=== PATIENT | female | born 1940 | race Caucasian/White ===

== ENCOUNTER 2016-04-24 15:44 | Inpatient (IN) | payer MEDICARE, OTHER ==
[2016-04-24] MEDS ORDERED: IPRATROPIUM/ALBUTEROL 3 ML DEYVIAL IH ONE (15:53)
--- NOTE | 2016-04-24 16:03 | CPEKG ---
Heart Rate: 127 RR Interval: 472 P-R Interval: 144 QRSD Interval: 138 QT Interval: 340 QTC Interval: 495 P [place]: 74 QRS [place]ney: -76 T Wave [place]: 98 EKG Severity - ABNORMAL ECG - EKG Impression: SINUS TACHYCARDIA EKG Impression: PROBABLE LEFT ATRIAL ABNORMALITY EKG Impression: LEFT BUNDLE BRANCH BLOCK EKG Impression: Left ventricular hypertrophy with repolarization Electronically Signed By: Ellis Vidal 24-Apr-2016 16:14:49
[2016-04-24] MEDS ORDERED: ALBUTEROL 3 ML DEYVIAL IH ONE ×2 (16:13→16:23)
[2016-04-24] MEDS ORDERED: methylPREDNISolone SOD SUCC 125 MG/2 ML VIAL IVP ONE (16:13)
--- NOTE | 2016-04-24 16:17 | EDPHY ---
H & P Stated Complaint: increasing sob/cough Time Seen by Provider: 04/24/16 16:03 HPI/ROS: CHIEF COMPLAINT: Shortness of breath HISTORY OF PRESENT ILLNESS: Patient is a 76-year-old female smoker with a history of COPD who comes to the emergency department complaining of shortness of breath. She states that she has been mildly short of breath for the last 4 weeks. It started with a runny nose. She saw her doctor a few weeks ago and was started on a course of prednisone and doxycycline. This did not help initially but eventually she did feel better for about 4 days until her symptoms returned. She saw her doctor again 3 days ago and was started back on doxycycline and prednisone. She states however that does not seem to be helping. She does not wear oxygen at home. She has been using her inhaler 3 times per day. She denies fevers. She does have a dry cough. She denies chest pain or abdominal pain. Her doctor's office referred her here today requesting that she be ruled out for heart attack or PE. REVIEW OF SYSTEMS: Constitutional: denies: chills, fever, recent illness, recent injury EENTM: denies: blurred vision, double vision, nose congestion Respiratory: See HPI Cardiac: denies: chest pain, irregular heart rate, lightheadedness, palpitations Gastrointestinal/Abdominal: denies: abdominal pain, diarrhea, nausea, vomiting, blood streaked stools Genitourinary: denies: dysuria, frequency, hematuria, pain Musculoskeletal: denies: joint pain, muscle pain Skin: denies: lesions, rash, jaundice, bruising Neurological: denies: headache, numbness, paresthesia, tingling, dizziness, weakness Hematologic/Lymphatic: denies: blood clots, easy bleeding, easy bruising Immunologic/allergic: denies: HIV/AIDS, transplant EXAM: GENERAL: tachypneic, well-nourished and in no acute distress. HEAD: Atraumatic, normocephalic. EYES: Pupils equal round and reactive to light, extraocular movements intact, sclera anicteric, conjunctiva are normal. ENT: TMs normal, nares patent, oropharynx clear without exudates. Moist mucous membranes. NECK: Normal range of motion, supple without lymphadenopathy or JVD. LUNGS: audible wheezes without auscultation, breath sounds distant with auscultation. No rhonchi. HEART: Regular rate and rhythm without murmurs, rubs or gallops. ABDOMEN: Soft, nontender, normoactive bowel sounds. No guarding, no rebound. No masses appreciated. BACK: No CVA tenderness, no spinal tenderness, step-offs or deformities EXTREMITIES: Normal range of motion, no pitting or edema. No clubbing or cyanosis. NEUROLOGICAL: Cranial nerves II through XII grossly intact. Normal speech, normal gait. 5/5 strength, normal movement in all extremities, normal sensation PSYCH: Normal mood, normal affect. SKIN: Warm, dry, normal turgor, no visible rashes or lesions. Source: Patient Exam Limitations: No limitations - Personal History Current Tetanus/Diphtheria Vaccine: Unsure - Medical/Surgical History Hx Asthma: Yes Hx Chronic Respiratory Disease: Yes Hx Diabetes: No Hx Cardiac Disease: No Hx Renal Disease: No Hx Cirrhosis: No Hx Alcoholism: No Hx HIV/AIDS: No Hx Splenectomy or Spleen Trauma: No Other PMH: copd/asthma/htn - Family History Significant Family History: No pertinent family hx - Social History Smoking Status: Current every day smoker Alcohol Use: Sober Drug Use: None Constitutional: Initial Vital Signs Temperature (C) 36.5 C 04/24/16 15:50 Heart Rate 126 H 04/24/16 15:50 Respiratory Rate 34 H 04/24/16 15:50 Blood Pressure 182/92 H 04/24/16 15:50 O2 Sat (%) 91 L 04/24/16 15:50 O2 Delivery Mode Nasal Cannula O2 (L/minute) 2 Allergies/Adverse Reactions: Penicillins Allergy (Verified 04/24/16 15:48) Home Medications: Medication Instructions Recorded Albuterol [Ventolin Hfa Inhaler] 2 puffs IH QID 04/24/16 Doxycycline Hyclate [Vibramycin 100 mg PO BID 04/24/16 100 MG (*)] Escitalopram Oxalate [Lexapro] 5 mg PO DAILY 04/24/16 Losartan Potassium [Cozaar 50 mg 75 mg PO DAILY 04/24/16 (*)] predniSONE 40 mg PO DAILY 04/24/16 Medical Decision Making - Diagnostics EKG Interpretation: An EKG obtained and was read and documented in trace view. Please see trace view for full reading and report. Sinus tachycardia, left bundle branch block, left ventricular hypertrophy with repolarization abnormality Imaging: Results: CT scan of the chest angiogram was obtained. The results of the study are negative for PE, positive for multiple bilateral mucus plugs as well as right upper lobe pneumonitis. The study was read by Dr. Jamaal Brunner. I viewed the images myself on the PACS system. ED Course/Re-evaluation: 5:40 p.m. the patient is feeling slightly better after albuterol continuous neb. She desaturates however on room air down to 87%. She continues to be tachypneic and purse her lips. Lung sounds remain distant not necessarily wheezing. Her troponin is slightly elevated likely secondary to the respiratory distress. CT results pending. I discussed her case with Hilton who recommended she stay here. She also remains tachycardic which I think is likely secondary to the albuterol load. 6:00 p.m. I will start the patient on antibiotics based on her mucus plugging and admit to the hospital for further workup and treatment. I discussed the case with Dr. Herson Watson who will accept to the medical service. I will order sepsis labs because of her tachycardia and possible bronchitis although I suspect her tachycardia is primarily from the albuterol she has been taking today. She is hypertensive. Differential Diagnosis: Partial list of the Differential diagnosis considered include but were not limited to; COPD exacerbation, bronchitis, pneumonia and although unlikely based on the history and physical exam, I also considered PE, acute coronary disease. - Data Points Laboratory Results: Laboratory Results 04/24/16 16:30 04/24/16 16:30 04/24/16 16:30 WBC 12.30 H 10^3/uL (3.80-9.50) RBC 5.54 H 10^6/uL (4.18-5.33) Hgb 16.5 H g/dL (12.6-16.3) Hct 47.8 H % (38.0-47.0) MCV 86.3 fL (81.5-99.8) MCH 29.8 pg (27.9-34.1) MCHC 34.5 g/dL (32.4-36.7) RDW 13.9 % (11.5-15.2) Plt Count 350 10^3/uL (150-400) MPV 10.3 fL (8.7-11.7) Neut % (Auto) 84.7 H % (39.3-74.2) Lymph % (Auto) 11.8 L % (15.0-45.0) [place] % (Auto) 2.8 L % (4.5-13.0) Eos % (Auto) 0.2 L % (0.6-7.6) Baso % (Auto) 0.2 L % (0.3-1.7) Nucleat RBC Rel Count 0.0 % (0.0-0.2) Absolute Neuts (auto) 10.42 H 10^3/uL (1.70-6.50) Absolute Lymphs (auto) 1.45 10^3/uL (1.00-3.00) Absolute Monos (auto) 0.35 10^3/uL (0.30-0.80) Absolute Eos (auto) 0.02 L 10^3/uL (0.03-0.40) Absolute Basos (auto) 0.02 10^3/uL (0.02-0.10) Absolute Nucleated RBC 0.00 10^3/uL (0-0.01) Immature Gran % 0.3 % (0.0-1.1) Immature Gran # 0.04 10^3/uL (0.00-0.10) PT 13.8 SEC (12.0-15.0) INR 1.07 (0.83-1.16) APTT 25.8 SEC (23.0-38.0) Sodium 143 mEq/L (134-144) Potassium 3.6 mEq/L (3.5-5.2) Chloride 105 mEq/L (97-110) Carbon Dioxide 24 mEq/l (22-31) Anion Gap 14 mEq/L (8-16) BUN 18 mg/dL (7-23) Creatinine 0.9 mg/dL (0.6-1.0) Estimated GFR > 60 Glucose 158 H mg/dL (70-100) Calcium 9.7 mg/dL (8.5-10.4) Total Bilirubin 0.6 mg/dL (0.1-1.4) Troponin I 0.048 H ng/mL (0-0.034) NT-Pro-B Natriuret Pep 3720 H pg/mL (0-450) Medications Given: Discontinued Medications Albuterol (Proventil Neb) 3 ml IH EDNOW ONE Stop: 01/20/17 16:14 Last Admin: 04/24/16 16:25 Dose: Not Given Albuterol (Proventil Neb) 10 ml IH CONT ONE Stop: 04/24/16 16:24 Last Admin: 04/24/16 16:35 Dose: 10 ml Albuterol/Ipratropium (Duoneb) 3 ml IH EDNOW ONE Stop: 04/24/16 15:54 Last Admin: 04/24/16 16:00 Dose: 3 ml Azithromycin 500 mg/ Dextrose 255 mls @ 255 mls/hr IV EDNOW ONE PRN Reason: Protocol Stop: 04/24/16 18:45 Last Admin: 04/24/16 18:47 Dose: 255 mls Methylprednisolone Sodium Succinate (Solu-Medrol) 125 mg IVP EDNOW ONE Stop: 04/24/16 16:14 Last Admin: 04/24/16 16:31 Dose: 125 mg Sodium Chloride (Ns *For Sepsis Order Set Only*) 1,388 ml IV EDNOW ONE Stop: 04/24/16 17:52 Last Admin: 04/24/16 18:47 Dose: 1,388 ml Departure - Departure Disposition: [facility] Inpatient Acute Clinical Impression: Chronic obstructive pulmonary disease with acute exacerbation, Severe sepsis Acute bronchitis Qualifiers: Bronchitis organism: unspecified organism Qualifier Code: (J20.9) Acute bronchitis, unspecified Condition: Fair
[2016-04-24 16:39] LABS: % IMMATURE GRANULYOCYTES 0.3 % (0.0-1.1); ABSOLUTE IMMATURE GRANULOCYTES 0.04 10^3/uL (0.00-0.10); ADD DIFF? NO; ADD MORPH? NO; ADD SCAN? NO; ATYPICAL LYMPHOCYTE FLAG 10 (0-99); FRAGMENT RBC FLAG 0 (0-99); HEMATOCRIT 47.8 % (38.0-47.0); HEMOGLOBIN 16.5 g/dL (12.6-16.3); LEFT SHIFT FLG 0 (0-99); LIPEMIA HEMOLYSIS FLAG 90 (0-99); MEAN CELL HEMOGLOBIN 29.8 pg (27.9-34.1); MEAN CELL HEMOGLOBIN CONCENTR. 34.5 g/dL (32.4-36.7); MEAN CELL VOLUME 86.3 fL (81.5-99.8); MEAN PLATELET VOLUME 10.3 fL (8.7-11.7); PLATELET CLUMPS FLAG 0 (0-99); PLATELET COUNT 350 10^3/uL (150-400); RED BLOOD CELL COUNT 5.54 10^6/uL (4.18-5.33); RED CELL DISTRIBUTION WIDTH 13.9 % (11.5-15.2)
[2016-04-24 16:53] LABS: ANION GAP 14 mEq/L (8-16); APTT 25.8 SEC (23.0-38.0); CALCIUM 9.7 mg/dL (8.5-10.4); CARBON DIOXIDE 24 mEq/l (22-31); CHLORIDE 105 mEq/L (97-110); CREATININE 0.9 mg/dL (0.6-1.0); GLOMERULAR FILTRATION RATE > 60; GLUCOSE 158 mg/dL (70-100); INR 1.07 (0.83-1.16); POTASSIUM 3.6 mEq/L (3.5-5.2); PROTIME(PATIENT) 13.8 SEC (12.0-15.0); SODIUM 143 mEq/L (134-144)
[2016-04-24] MEDS ORDERED: IOPAMIDOL (ISOVUE 370) 100 ML BTL IV ONE (16:59)
[2016-04-24 17:05] LABS: TROPONIN I 0.048 ng/mL (0-0.034)
[2016-04-24] MEDS ORDERED: AZITHROMYCIN IV 500 MG in D5W 250 ML IV ONE (17:46)
[2016-04-24] MEDS ORDERED: NS 1,000 ML BAG *FOR SEPSIS ORDER SET ONLY IV ONE (17:51)
[2016-04-24 18:11] LABS: BILIRUBIN,TOTAL 0.6 mg/dL (0.1-1.4)
--- NOTE | 2016-04-24 18:11 | CT ---
CT Pulmonary Angiogram History: Dyspnea. Worsening shortness of breath, with cough. History of asthma and COPD. Technique: Multidetector helical CT imaging was performed through the chest while 90 mL Isovue-370 w ere given intravenously by automated power machine injector. The images were then transferred to an independent workstation where multiplanar and three-dimensional reconstructions were performed by me. Dose reduction techniques were utilized. Findings CT Pulmonary Angiogram: No intraluminal filling defects are seen in the pulmonary arterial system to suggest pulmonary embolus. The thoracic aorta has normal contour, without evidence of aneurysm or d issection. Mildly ulcerated plaques are scattered in the thoracic aorta. Atherosclerotic stenoses a re incidentally noted at the origin of the left common carotid artery (70%), celiac axis (60%), and l eft renal artery (70%). Two right renal arteries are present. Chest: Numerous foci of mucous plugging of bronchi are scattered bilaterally, with a small zone of p eripheral consolidation of the apical segment of the right upper lobe, compatible with pneumonia. No adenopathy and no pulmonary masses are found. Left ventricle is enlarged. Other cardiac chambers are normal in size. No compression fracture of thoracic spine. Impressions 1. No pulmonary emboli. 2. Numerous scattered mucous plugs within bronchi bilaterally, with a small area of postobstructive pneumonia in the right upper lobe. I called results to Dr. Vidal at 1745 hours.
[2016-04-24] MEDS ORDERED: cefTRIAXone 2 GM in D5W 50 ML IV ONE (18:39)
[2016-04-24 18:53] LABS: COLOR PALE YELLOW; LEUKOCYTE ESTERASE,URINE NEGATIVE (NEGATIVE); NITRITE,URINE NEGATIVE (NEGATIVE)
[2016-04-24 19:00] LABS: BACTERIA NONE SEEN /hpf (NONE SEEN); MUCUS NONE SEEN /lpf (NONE-1+)
[2016-04-24 19:01] LABS: LACGHOST ORDER
[2016-04-24] MEDS ORDERED: ONDANSETRON 4 MG/2 ML VIAL IVP PRN (20:04)
[2016-04-24] MEDS ORDERED: ZOLPIDEM TARTRATE 5 MG TAB PO PRN (20:04)
[2016-04-24] MEDS ORDERED: ACETAMINOPHEN 325 MG TAB PO PRN (20:04)
[2016-04-24] MEDS ORDERED: ALBUTEROL 3 ML DEYVIAL IH PRN (20:04)
[2016-04-24] MEDS ORDERED: DILTIAZEM 125 MG in D5W 125 ML IV SCH (20:30)
--- NOTE | 2016-04-24 20:39 | PDGENHP ---
History and Physical History and Physical: HISTORY AND PHYSICAL ADMISSION NOTE CC: Shortness of breath and cough HISTORY: This patient has had shortness of breath and cough for approximately 1 month. She was diagnosed as having bronchitis and COPD exacerbation initially elsewhere and started on doxycycline and steroids orally. She had minimal improvement and then was started back a few days ago again on a 2nd round of doxycycline and steroids. She has not noticed fever, orthopnea, pleuritic pain or other chest pain, leg pain or leg swelling or palpitations. She has had upper respiratory infection type symptoms with a congested nose. Patient does have a long history of smoking and continues to smoke and she has an underlying history of COPD, but has never been admitted to hospital for COPD exacerbation. ROS: PAST MEDICAL HISTORY: COPD Hypertension Tobacco abuse FAMILY MEDICAL HISTORY: COPD SOCIAL HISTORY: Single, still smoking cigarettes, no illicit drugs or HIV risks MEDICATIONS: Losartan, Lexapro Albuterol doxycycline and prednisone all recently started with this illness PHYSICAL EXAMINATION: Vital Signs: Pulse in the 130s, respiratory rate approximately 30 on oxygen, blood pressure is good, no fever Beamer Operator: Regular narrow complex tachycardia in the 130s difficult to determine mechanism Examination: General: In obvious respiratory distress, alert, oriented, good mentation Skin: warm, dry, good color, no rash HEENT: normal Neck: no mass or jvd Resps: Very labored Lungs: Very diminished but clear breath sounds Heart: Rapid regular, no murmur Abdomen: soft, nondistended, nontender, +BS, no mass Upper Extremities: normal Lower Extremities: no edema, warm No Bleeding or bruising Neurologic: normal speech/language, 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 It is difficult to determine the mechanism of the rate but I believe this is probably atrial flutter, could be sinus tach. ASSESSMENT: DIAGNOSES: # ACUTE HYPOXEMIC RESPIRATORY FAILURE # COPD EXACERBATION # MUCUS PLUGGING MAY INDICATE BRONCHIAL INFECTION, NO ALVEOLAR INFILTRATES PRESENT AT THIS TIME # NEED TO RULE OUT INFLUENZA # RAPID NEW ONSET ATRIAL FLUTTER VERSUS SINUS TACHYCARDIA # ONGOING TOBACCO ABUSE PLANS: -inpatient admission initial clearly need more than 48 hours to clear her respiratory failure -She is started on steroids and bronchodilators in the ER will continue these -Rocephin and azithromycin started in the ER will continue these as they are appropriate -will hold her antidepressant due to QT prolongation problems with azithromycin for for the moment -check influenza -blood cultures were done in the ER -stoker installer -will slow her rate with diltiazem and recheck stoker installer and EKG to determine flutter versus sinus tachycardia -as I suspects flutter will start anticoagulation now -repeat cardiac troponin but I believe this is due to her acute respiratory illness and not an acute coronary syndrome I have reviewed the patient's case in detail with Dr. Vidal
[2016-04-25] MEDS: IPRATROPIUM/ALBUTEROL 3 ML DEYVIAL IH SCH ×6 (00:26→23:20)
--- NOTE | 2016-04-25 06:21 | CPEKG ---
Heart Rate: 88 RR Interval: 682 P-R Interval: 180 QRSD Interval: 136 QT Interval: 416 QTC Interval: 504 P [place]: 80 QRS [place]: -73 T Wave [place]: 123 EKG Severity - ABNORMAL ECG - EKG Impression: SINUS RHYTHM EKG Impression: RIGHT ATRIAL ABNORMALITY EKG Impression: NONSPECIFIC IVCD WITH LAD EKG Impression: LVH WITH SECONDARY REPOLARIZATION ABNORMALITY EKG Impression: ANTERIOR INFARCT, AGE INDETERMINATE Electronically Signed By: Nawaf Whitehead 25-Apr-2016 13:04:16
[2016-04-25 06:42] LABS: % IMMATURE GRANULYOCYTES 0.4 % (0.0-1.1); ABSOLUTE IMMATURE GRANULOCYTES 0.03 10^3/uL (0.00-0.10); ADD DIFF? NO; ADD MORPH? NO; ADD SCAN? NO; ATYPICAL LYMPHOCYTE FLAG 10 (0-99); FRAGMENT RBC FLAG 0 (0-99); HEMATOCRIT 40.9 % (38.0-47.0); HEMOGLOBIN 13.7 g/dL (12.6-16.3); LEFT SHIFT FLG 0 (0-99); LIPEMIA HEMOLYSIS FLAG 80 (0-99); MEAN CELL HEMOGLOBIN 29.7 pg (27.9-34.1); MEAN CELL HEMOGLOBIN CONCENTR. 33.5 g/dL (32.4-36.7); MEAN CELL VOLUME 88.7 fL (81.5-99.8); MEAN PLATELET VOLUME 10.1 fL (8.7-11.7); PLATELET CLUMPS FLAG 10 (0-99); PLATELET COUNT 297 10^3/uL (150-400); RED BLOOD CELL COUNT 4.61 10^6/uL (4.18-5.33); RED CELL DISTRIBUTION WIDTH 14.1 % (11.5-15.2)
[2016-04-25 06:44] LABS: ANION GAP 11 mEq/L (8-16); CALCIUM 8.9 mg/dL (8.5-10.4); CARBON DIOXIDE 23 mEq/l (22-31); CHLORIDE 111 mEq/L (97-110); CREATININE 0.9 mg/dL (0.6-1.0); GLOMERULAR FILTRATION RATE > 60; GLUCOSE 113 mg/dL (70-100); POTASSIUM 4.3 mEq/L (3.5-5.2); SODIUM 145 mEq/L (134-144)
[2016-04-25] MEDS: NICOTINE 21 MG/24 HR PATCH TD SCH (07:46)
--- NOTE | 2016-04-25 08:18 | HOSPPROG ---
Hospitalist Progress Note Assessment/Plan: #Acute hypoxemic resp failure: 05/07 #COPD exacerbation -CT showed mucus plugging, no PE -BNP elevated, TTE pending -cont Azithro, and Duonebs; changed to IV steroids today -PRN BiPap #Indeterminate trop -TTE shows reduced EF 25% #Compensated cardiomyopathy/systolic HF -not volume overloaded -appreciate Dr. Falcon's consultation -statin, ASA, Coreg started -plan for cardiac cath once stable from pulm standpoint #Sinus tachycardia -stable off dilt drip -cont telemetry #Tobacco abuse -counseled on cessation #Benign HTN -Losartan, Coreg started today #Diet: regular #DVT ppx: Lovenox #Disp: warrant ICU admission: cont IV steroids, Bipap and telemetry Subjective: anxious, SOB Objective: Vital Signs Temp Pulse Resp BP Pulse Ox 36.9 C 93 28 H 119/64 96 04/25/16 04:00 04/25/16 06:23 04/25/16 06:23 04/25/16 06:00 04/25/16 06:23 Laboratory Results 04/25/16 06:10 04/25/16 06:10 04/24/16 04/25/16 04/26/16 05:59 05:59 05:59 Intake Total 103.1 Output Total 100 Balance 3.1 PT 13.8 SEC (12.0-15.0) 04/24/16 16:30 INR 1.07 (0.83-1.16) 04/24/16 16:30 - Physical Exam Constitutional: cachectic Eyes: PERRL Ears, Nose, Mouth, Throat: moist mucous membranes, hearing normal Cardiovascular: no murmur, rub, or gallop, tachycardia Respiratory: reduced air movement, rhonchi Gastrointestinal: normoactive bowel sounds, soft, non-tender abdomen Genitourinary: no bladder fullness Skin: warm Musculoskeletal: full muscle strength Neurologic: AAOx3 Psychiatric: anxious ICD10 Worksheet Patient Problems: Problems Problem Status Diagnosed Acute bronchitis Acute Chronic obstructive pulmonary disease with acute exacerbation Acute Severe sepsis Acute
[2016-04-25] MEDS ORDERED: ESCITALOPRAM OXALATE 10 MG TAB PO SCH (09:00)
[2016-04-25] MEDS ORDERED: predniSONE 20 MG TAB PO SCH (09:00)
[2016-04-25] MEDS ORDERED: FUROSEMIDE 40 MG/4 ML VIAL IVP ONE (09:58)
[2016-04-25] MEDS: LOSARTAN POTASSIUM 50 MG TAB PO SCH (09:59)
[2016-04-25] MEDS: ACETYLCYSTEINE 20% IH/PO 30 ML VIAL IH SCH ×3 (10:07→23:19)
[2016-04-25] MEDS: guaiFENesin 600 MG TAB.ER PO SCH ×2 (10:21→21:06)
[2016-04-25] MEDS: AZITHROMYCIN IV 500 MG in D5W 250 ML IV SCH (10:53)
[2016-04-25] MEDS: ALPRAZolam 0.25 MG TAB PO SCH ×3 (11:43→21:06)
[2016-04-25] MEDS: methylPREDNISolone SOD SUCC 125 MG/2 ML VIAL IVP SCH ×2 (11:50→18:14)
--- NOTE | 2016-04-25 11:55 | ECHO ---
[id number] + + [address] : : [place] [address] : : [phone] + + Adult Echocardiographic Report + --------+ :Name: NIRMAL MANCILLA LStudy Date: 04/25/2016 09:33 AM : : Hospital Admission Number: [id number] Locat ion: 246: :: 1940 Gender: Female Height: 62 in : :Age: 76 yrs Race: WH Weight: 101 l b : :Reason For Study: Eval LV Fx : : BSA: 1.4 mete rs2 : :History: COPD, SOB, A-Flutter : + --------+ MMode/2D Measurements & Calculations IVSd: 0.88 cm LVIDd: 5.0 cm FS: 14.0 % Ao root diam: LVPWd: 0.97 cm LVIDs: 4.3 cm EDV(Teich): 2.6 cm 115.8 ml ACS: 1.9 cm ESV(Teich): 81.3 ml EF(Teich): 29.8 % LVLd ap4: 7.4 cm SV(MOD-sp4): EDV(MOD-sp4): 26.0 ml 84.0 ml LVLs ap4: 7.0 cm ESV(MOD-sp4): 58.0 ml EF(MOD-sp4): 31.0 % Normal Measurement Values: + + :LVIDd (3.5-5.7cm) IVSd (0.6-1.1cm) LVPWd (0.6-1.1cm) Aortic Root (2.0-3.7cm)Left Atrium (1.5-4.0cm): :LV Vol(d) (76-115ml) LV Vol(s) (29-48ml) Ejec Fraction (50-65%)PV Douglas (0.6- 1.2m/s) TV Douglas (0.4-1.0m/s) : :MV E Douglas (0.8-1.0m/s)MV A Douglas (0.3-1.0m/s)LVOT Douglas (0.7-1.2m/s) Asc Ao Douglas ( 0.9-1.8m/s) : + + Doppler Measurements & Calculations MV E max douglas: Ao V2 max: AI max douglas: LV V1 max: 137.1 cm/sec 165.6 cm/sec 390.9 cm/sec 68.0 cm/sec Ao max PG: AI max P.1 mmHg LV V1 max P.0 mmHg AI dec slope: 1.8 mmHg 184.1 cm/sec2 AI P1/2t: 621.9 msec PA V2 max: 97.7 cm/sec PA max P.8 mmHg Left Ventricle The left ventricle is normal in size. There is normal left ventricular wall thickness. Ejection Fraction = 25%. There is Doppler evidence for diastolic dysfunction. Tachycardia. Global hypokinesis with worse hypokinesis of the anterior wall and anteroseptum. Right Ventricle The right ventricle is normal in size and function. Atria The left atrial size is normal. Right atrial size is normal. Mitral Valve The mitral valve is normal in structure and function. There is no evidence of mitral valve prolapse. There is no mitral valve stenosis. There is trace mitral regurgitation. Tricuspid Valve Normal tricuspid valve. There is trace tricuspid regurgitation. Unable to assess PA systolic pressure. Aortic Valve The aortic valve is trileaflet. There is no aortic stenosis. Mild aortic regurgitation. Pulmonic Valve The pulmonic valve is normal in structure and function. There is no pulmonic valvular regurgitation. Great Vessels The aortic root is normal size. Pericardium/Pleural There is no pericardial effusion. Conclusion A complete two-dimensional transthoracic echocardiogram was performed (2D, M-mode, Doppler and color flow Doppler). Ejection Fraction = 25%. Global hypokinesis with worse hypokinesis of the anterior wall and anteroseptum. There is Doppler evidence for diastolic dysfunction. The mitral valve is normal in structure and function. There is trace mitral regurgitation. There is trace tricuspid regurgitation. Unable to assess PA systolic pressure The aortic valve is trileaflet. Mild aortic regurgitation. There is no pericardial effusion. No prior echo Final Reading Physician: Dr Marj Falcon electronically signed on 04/25/2016 11:54 AM Ordering Physician: Herson Watson Performed By: Chilango Monterroso, NARCISOCS
--- NOTE | 2016-04-25 12:39 | GCON ---
[f rep st] CONSULTATION CREDIT COLLECTOR CONSULTATION REASON FOR ADMISSION: Pneumonia, chronic obstructive pulmonary disease with acute exacerbation. Ms. Florez is an extremely pleasant 76-year-old white female with a past medical history of chronic obst ructive pulmonary disease, hypertension, tobacco abuse and fibromyalgia. She presents with increasin g breathlessness and in discussion the patient's states her symptoms began after a cold approximately 1 month ago. This is worsening in severity. She was started on antibiotics and steroids from her [facility] physician several weeks ago. Her cough is distinctly nonproductive at this time. There was no chest pain, pleuritic-type chest pain or angina equivalent. No fever, no night sweats. She h as continued to smoke. Currently, she is on supplemental oxygen and is somewhat dyspneic. PAST MEDICAL HISTORY: Significant for chronic obstructive pulmonary disease, hypertension, fibromyal navneet. SOCIAL HISTORY: Longstanding tobacco use and she continues to smoke. No significant alcohol use. N o drug use. ALLERGIES: Penicillin. MEDICATIONS: At home include losartan, Lexapro. PHYSICAL EXAM: VITAL SIGNS: Blood pressure is 119/64, pulse 89, respirations 20, temperature is 36. 9, oxygen saturation 100% on 5 L. GENERAL: She is thin, somewhat frail, elderly white female, who is in mild respiratory distress. HEENT: Eyes are SHEREEN, EOMI. Throat shows no erythema or tonsillar hypertrophy. NECK: Supple. There is no cervical adenopathy. HEART: Regular rate and rhythm with a 2/6 systolic murmur at the left sternal border without radiation. LUNGS: Diminished breath sound s with significant prolonged expiratory phase. There are a few crackles in the bases. There is no w heeze. ABDOMEN: Soft, nontender. Bowel sounds are present in all 4 quadrants. EXTREMITIES: No cl ubbing, cyanosis, or edema. LABORATORIES: White count is 8.4, hemoglobin 13, hematocrit 40, platelet count 297. Sodium 145, pot assium 4.3, chloride 111, CO2 of 23, BUN 16, creatinine 0.9, glucose is 113. Influenza A and B are n egative. Urinalysis is negative. CT scan of the chest shows no evidence of pulmonary embolus but mu cus plugging scattered in both bronchi with some evidence of a postobstructive pneumonia in the right upper lobe. IMPRESSION: 1. Chronic obstructive pulmonary disease, most likely the emphysematous type. 2. Pneumonia/bronchitis. 3. Scattered mucus plugging. 4. Fibromyalgia. 5. Tobacco abuse. 6. Respiratory failure on supplemental oxygen. 7. History of fibromyalgia. RECOMMENDATIONS: 1. Agree with current antibiotic coverage. 2. Will increase steroids. We will discontinue prednisone at this time and start patient on Solu-Me drol 125 q.6. 3. Aggressive pulmonary toilet. To that regard, will add Mucomyst as well as guaifenesin to the mix . She receive Acapella treatments as well as vest therapy. 4. We will re-image the patient's chest tomorrow. 5. Patient is strongly encouraged to quit smoking cigarettes. 6. She is a [facility] patient and would recommend followup with a [facility] secured entrance monitor as an outpatient . Thank you very much for allowing me to participate in the care of this patient. We will follow along with you. /[id number]/MODL
[2016-04-25] MEDS: ASPIRIN 325 MG TAB PO SCH (13:00)
[2016-04-25] MEDS: ATORVASTATIN CALCIUM 40 MG TAB PO SCH (13:00)
[2016-04-25] MEDS: CARVEDILOL 3.125 MG TAB PO SCH ×2 (13:25→18:14)
--- NOTE | 2016-04-25 14:14 | GCON ---
[f rep st] CONSULTATION CARDIOLOGY CONSULT. DATE OF CONSULTATION: 04/25/2016 PRIMARY CARE: [facility]. CHIEF COMPLAINT: Shortness of breath. HISTORY OF PRESENT ILLNESS: We were asked by Dr. August to visit with the patient. The patient is a 76-year-old female with COPD and asthma as well as hypertension and ongoing tobacco abuse. She was admitted on April 24 with a month of progressive dyspnea and cough. A few weeks ago she had had nasal congestion/rhinorrhea, which improved with antibiotic therapy. However, her dyspnea worsened a nd she continues to have a cough productive of white phlegm. Yesterday, she presented to the ER and was found to be tachycardic, likely sinus tachycardia. Tropon in was borderline elevated. She was treated with albuterol nebulizers, antibiotics, and steroids, an d admitted to the ICU. Her echocardiogram this morning, reviewed by me, shows a depressed ejection fraction at 25% with glob al hypokinesis and more severe hypokinesis of the anterior wall and anterior septum. Upon my evaluation, she reports profound dyspnea. She has not had any sort of chest discomfort. She denies palpitations or a history of syncope. No lower extremity edema. REVIEW OF SYSTEMS: A full 10-point review of systems was performed and is otherwise negative except that which is outlined in the History of Present Illness. ALLERGIES: Penicillin. PAST MEDICAL HISTORY: 1. COPD. 2. Asthma. 3. Hypertension. 4. Carotid disease, seen on yesterday's chest CT. 5. Ongoing tobacco abuse. 6. Depression. MEDICATIONS: Losartan 75 mg daily, Lexapro 5 mg daily, albuterol inhaler, doxycycline, and prednison e. SOCIAL HISTORY: The patient smokes 1 pack of cigarettes a day and is not interested in quitting. Sh e denies alcohol abuse or cocaine use. She is the primary caregiver for her daughter. FAMILY HISTORY: Notable for COPD. PHYSICAL EXAM: VITAL SIGNS: Blood pressure is 150/70. Heart rate has ranged from 85-128. Oxygen s aturation is 96% on 5 L nasal cannula. Respiratory rate is 34. She is afebrile. GENERAL: This is an acutely ill-appearing, dyspneic elderly female in respiratory distress. She has pursed lip breath ing. HEENT: Sclerae are clear and free of jaundice. Mucosa membranes are moist. Normocephalic, atraumat ic. CARDIOVASCULAR: JVP is less than 10. Tachycardic. Regular rhythm without murmur, rub, or gall op. LUNGS: Decreased breath sounds throughout all lung talley. Prolonged expiratory phase with end -expiratory wheeze. No rales or rhonchi. ABDOMEN: Soft, nontender, and nondistended without bruits , mass, or hepatosplenomegaly. EXTREMITIES: Warm and well perfused without cyanosis or edema. NEUR O: Alert and oriented x3 without gross focal neurologic deficits. Appropriate mood and affect. LABORATORY DATA: White count 8.48, hematocrit 41, and platelets are 297. INR is normal. Venous lac tic acid was 3.5 and 3.2. Sodium 145, potassium 4.3, chloride 111, bicarb 23, BUN 16, creatinine 0.9 , glucose 113. Troponin 0.048; second troponin is pending. BNP 3720. TSH is pending. EKG x3, reviewed by me, shows sinus rhythm or sinus tachycardia with atypical left bundle branch bloc k. No previous EKG available. Echocardiogram reviewed by me: Normal LV size. Severely depressed LV systolic function with ejectio n fraction of 25% and more significant hypokinesis of the anterior wall and anterior septum in the se tting of global hypokinesis. Mild aortic regurgitation. No pericardial effusion. Chest CT: No pulmonary emboli. Scattered mucous plugging. Postobstructive pneumonia in the right u pper lobe. There are ulcerated plaques in the thoracic aorta as well as atherosclerosis in the left common carotid artery, celiac axis, and left renal artery. ASSESSMENT AND PLAN: A 76-year-old female with advanced chronic obstructive pulmonary disease, prese nts with respiratory distress, borderline abnormal troponin, and newly diagnosed cardiomyopathy. Her clinical picture is more consistent with chronic obstructive pulmonary disease that may have been ex acerbated by a viral upper respiratory infection but now appears to have pneumonia on chest CT. The differential diagnosis of cardiomyopathy includes coronary disease, viral given her recent symptoms, or tachycardia mediated given her significant sinus tachycardia. 1. Cardiomyopathy: Her BNP is slightly elevated, and she has received a dose of Lasix. Overall, ho wever, I do not think that she is in florid heart failure. I would certainly recommend further evalu ation for coronary artery disease and intracardiac filling pressures with a right and left heart cath eterization. However, at this point I do not think she is stable from a pulmonary standpoint to tole rate sedation. We will consider catheterization over the next couple of days. Given her borderline troponin, we will cycle troponins. I have started aspirin and moderate-dose statin therapy. I do no t think she is a candidate for beta-sarahy therapy given her active chronic obstructive pulmonary di sease at this time, but this would be an ideal medication for her long-term. She is already on an an giotensin-receptor sarahy for hypertension, so this will be continued in the setting of her cardiomy opathy. 2. Chronic obstructive pulmonary disease: Per Dr. August. She was counseled that she absolutely ne eds to quit smoking. She is not interested in this at this time. 3. Tobacco dependence: Per #2. 4. Hypertension: She is on losartan. Would consider beta blockers as her pulmonary status improves , plus/minus up titration of her angiotensin-receptor sarahy. 5. Tachycardia: Careful review of 3 EKGs during her admission thus far reveal that this appears to be sinus mechanism. I do not think she has had atrial flutter. Thank you for allowing us to participate in this patient's care. Will follow with you. /[id number]/MODL
[2016-04-25] MEDS: FAMOTIDINE 20 MG TAB PO SCH (21:06)
[2016-04-26] MEDS: methylPREDNISolone SOD SUCC 125 MG/2 ML VIAL IVP SCH ×6 (01:04→23:59)
[2016-04-26] MEDS: ACETYLCYSTEINE 20% IH/PO 30 ML VIAL IH SCH ×4 (06:13→22:43)
[2016-04-26] MEDS: IPRATROPIUM/ALBUTEROL 3 ML DEYVIAL IH SCH ×4 (06:13→22:44)
[2016-04-26 06:37] LABS: % IMMATURE GRANULYOCYTES 0.4 % (0.0-1.1); ABSOLUTE IMMATURE GRANULOCYTES 0.05 10^3/uL (0.00-0.10); ADD DIFF? NO; ADD MORPH? NO; ADD SCAN? NO; ATYPICAL LYMPHOCYTE FLAG 0 (0-99); FRAGMENT RBC FLAG 0 (0-99); HEMATOCRIT 45.3 % (38.0-47.0); HEMOGLOBIN 15.1 g/dL (12.6-16.3); LEFT SHIFT FLG 0 (0-99); LIPEMIA HEMOLYSIS FLAG 80 (0-99); MEAN CELL HEMOGLOBIN 29.7 pg (27.9-34.1); MEAN CELL HEMOGLOBIN CONCENTR. 33.3 g/dL (32.4-36.7); MEAN CELL VOLUME 89.2 fL (81.5-99.8); MEAN PLATELET VOLUME 10.2 fL (8.7-11.7); PLATELET CLUMPS FLAG 0 (0-99); PLATELET COUNT 323 10^3/uL (150-400); RED BLOOD CELL COUNT 5.08 10^6/uL (4.18-5.33)
[2016-04-26 06:42] LABS: ANION GAP 10 mEq/L (8-16); CALCIUM 9.5 mg/dL (8.5-10.4); CARBON DIOXIDE 24 mEq/l (22-31); CHLORIDE 107 mEq/L (97-110); GLOMERULAR FILTRATION RATE 54; GLUCOSE 127 mg/dL (70-100); POTASSIUM 4.8 mEq/L (3.5-5.2); SODIUM 141 mEq/L (134-144)
--- NOTE | 2016-04-26 08:24 | HOSPPROG ---
Hospitalist Progress Note Assessment/Plan: #Acute hypoxemic resp failure: 05/07 #COPD exacerbation -CT showed mucus plugging, no PE -BNP elevated, TTE pending -cont Azithro, and Duonebs; changed to IV steroids today -PRN BiPap #Indeterminate trop -TTE shows reduced EF 25% -cardiac cath tomorrow #Compensated cardiomyopathy/systolic HF -not volume overloaded -appreciate Dr. Falcon's consultation -statin, ASA, Coreg started -plan for right/left cath Wednesday #Sinus tachycardia -stable off dilt drip -cont telemetry #Tobacco abuse -counseled on cessation #Benign HTN -Losartan, Coreg started today #Diet: regular #DVT ppx: Lovenox #Disp: warrant ICU admission: cont IV steroids, Bipap and telemetry Subjective: breathing improved. No chest pain Objective: Vital Signs Temp Pulse Resp BP Pulse Ox 36.2 C 103 H 18 120/64 96 04/25/16 20:00 04/26/16 06:14 04/26/16 06:14 04/26/16 06:00 04/26/16 06:14 Laboratory Results 04/26/16 06:10 04/26/16 06:10 04/25/16 04/26/16 04/27/16 05:59 05:59 05:59 Intake Total 103.1 1030 Output Total 100 2300 Balance 3.1 -1270 PT 13.8 SEC (12.0-15.0) 04/24/16 16:30 INR 1.07 (0.83-1.16) 04/24/16 16:30 - Physical Exam Constitutional: chronically ill appearing, cachectic Eyes: PERRL Ears, Nose, Mouth, Throat: moist mucous membranes Cardiovascular: tachycardia Respiratory: reduced air movement Gastrointestinal: normoactive bowel sounds, soft, non-tender abdomen Skin: warm Neurologic: AAOx3 Psychiatric: anxious ICD10 Worksheet Patient Problems: Problems Problem Status Diagnosed Acute bronchitis Acute Chronic obstructive pulmonary disease with acute exacerbation Acute Severe sepsis Acute
[2016-04-26] MEDS ORDERED: TEMAZEPAM 15 MG CAP PO PRN (08:59)
--- NOTE | 2016-04-26 09:08 | PDCARPN ---
Cardiology Progress Note Assessment/Plan: Assessment/plan: 76 yo F with COPD admitted with COPD exacerbation, pneumonia. Found to have borderline elevated troponin and newly dx CMP (LVEF 25%) 1. COPD/pna: respiratory status improved with abx, nebs, steroids. 2. CMP: not in overt CHF. REceived one dose of IV lasix. Started coreg ( tolerating from resp standpoint). COntinue ARB. Right and left heart cath tomorrow for further evaluation 3. Borderline trop: atypical LBBB without prior ECG. NO angina. Cath tomorrow. ASA, statin 4. HTN: well controlled 5. Tobacco abuse: nicotine patch. Encouraged cessation 6. Carotid dz: seen on CT. ASA, statin, BP mx. 04/26/16 09:02 Subjective: Parul does have nasal congestion. No CP. OVerall breathing better but still LOZANO Reviewed/Discussed With: other (Dr. August) Objective: Vital Signs (8 Hrs) Pulse Resp BP Pulse Ox 04/26/16 08:00 94 19 128/57 H 98 04/26/16 06:14 103 H 18 96 04/26/16 06:00 89 18 120/64 100 04/26/16 04:00 99 14 117/63 98 04/26/16 02:00 102 H 14 125/58 H 96 Intake/Output (24 Hrs) 04/25/16 04/26/16 04/27/16 05:59 05:59 05:59 Intake Total 103.1 1030 Output Total 100 2300 Balance 3.1 -1270 Intake: Oral (ml) 100 670 IV Intake (ml) 360 IV Infused (ml) 3.1 Diltiazem 125 mg In D5w 3.1 125 ml @ Per Protocol IV CONT SALONI Rx#:[id number] Output: Urine (ml) 100 2300 Bedside Commode 100 2300 Other: Weight 46.1 kg Number of Voids Bedside Commode 5 4 NAD JVP 10 RRR no m/r/g Lungs CTAB no wheezes, rhonchi, rales No edema Result Diagrams: 04/26/16 06:10 04/26/16 06:10 Cardiac Labs: Cardiac Lab Results (72 Hrs) 04/25/16 12:10 Troponin I 0.059 H Telemetry: NSR ICD10 Worksheet Patient Problems: Problems Problem Status Diagnosed Acute bronchitis Acute Chronic obstructive pulmonary disease with acute exacerbation Acute Severe sepsis Acute
[2016-04-26] MEDS: ALPRAZolam 0.25 MG TAB PO SCH ×3 (09:29→21:01)
[2016-04-26] MEDS: NICOTINE 21 MG/24 HR PATCH TD SCH (09:29)
[2016-04-26] MEDS: AZITHROMYCIN IV 500 MG in D5W 250 ML IV SCH (09:29)
[2016-04-26] MEDS: FAMOTIDINE 20 MG TAB PO SCH ×2 (09:29→21:01)
[2016-04-26] MEDS: ASPIRIN 325 MG TAB PO SCH (09:29)
[2016-04-26] MEDS: ENOXAPARIN 40 MG/0.4 ML SYR SC SCH (09:29)
[2016-04-26] MEDS: guaiFENesin 600 MG TAB.ER PO SCH ×2 (09:30→21:01)
[2016-04-26] MEDS: ATORVASTATIN CALCIUM 40 MG TAB PO SCH (09:30)
[2016-04-26] MEDS: CARVEDILOL 3.125 MG TAB PO SCH ×2 (09:30→17:29)
[2016-04-26] MEDS: LOSARTAN POTASSIUM 50 MG TAB PO SCH (09:30)
[2016-04-26] MEDS ORDERED: fentaNYL 100 MCG/2 ML INJ ONE (09:35)
[2016-04-26] MEDS ORDERED: LIDOCAINE 1% 30 ML SDV ONE (09:35)
[2016-04-26] MEDS ORDERED: MIDAZOLAM 2 MG/2 ML VIAL ONE (09:36)
[2016-04-26] MEDS ORDERED: IOPAMIDOL (ISOVUE-370) 150 ML BTL IV ONE (09:36)
--- NOTE | 2016-04-26 09:43 | PDINTPN ---
Advisor Consultant Progress Note Assessment/Plan: Assessment/Plan: * Severe Emphysema/exac-improved -continue steroids/nebs * Pna-cont abs -check CXR am * Resp failure-improved * CMP-cath in am * Anxiety-better on Xanax * Malnutrition Subjective: Breathing easier. Still anxious Objective: Vital Signs Temp Pulse Resp BP Pulse Ox 36.2 C 94 19 128/57 H 98 04/25/16 20:00 04/26/16 08:00 04/26/16 08:00 04/26/16 08:00 04/26/16 08:00 Laboratory Results 04/26/16 06:10 04/26/16 06:10 04/25/16 04/26/16 04/27/16 05:59 05:59 05:59 Intake Total 103.1 1030 Output Total 100 2300 Balance 3.1 -1270 PT 13.8 SEC (12.0-15.0) 04/24/16 16:30 INR 1.07 (0.83-1.16) 04/24/16 16:30 Physical Exam - Physical Exam General Appearance: alert, mild distress EENT: PERRL/EOMI, normal ENT inspection, pharynx normal, TMs normal Neck: non-tender, full range of motion, supple, normal inspection Respiratory: respiratory distress (mild), prolonged expiration, No wheezing Cardiac/Chest: normal peripheral pulses, regular rate, rhythm, systolic murmur Peripheral Pulses: 2+: carotid (R), carotid (L), femoral (R), femoral (L), dorsalis-pedis (R), dorsalis-pedis (L) Abdomen: normal bowel sounds, non-tender, soft Pelvic Exam: deferred Rectal: deferred Skin: normal color, warm/dry Neuro/Psych: alert ICD10 Worksheet Patient Problems: Problems Problem Status Diagnosed Acute bronchitis Acute Chronic obstructive pulmonary disease with acute exacerbation Acute Severe sepsis Acute
[2016-04-26] MEDS ORDERED: ALTEPLASE 2 MG VIAL IVP PRN (10:59)
--- NOTE | 2016-04-26 12:03 | HOSPPROG ---
Hospitalist Progress Note Assessment/Plan: #Acute hypoxemic resp failure: 05/07 #COPD exacerbation -CT showed mucus plugging, no PE -cont Azithro, CTX and Duonebs; changed to IV steroids today -PRN BiPap #Indeterminate trop -atypical LBBB -TTE shows reduced EF 25% -statin, ASA, Coreg -cath in morning #Compensated cardiomyopathy/systolic HF -not volume overloaded -appreciate Dr. Falcon's consultation -statin, ASA, Coreg started -plan for left/right heart cath Wednesday #Sinus tachycardia -stable off dilt drip -cont telemetry #Tobacco abuse -counseled on cessation #Benign HTN -Losartan, Coreg started today #Diet: regular #DVT ppx: Lovenox #Disp: warrant ICU admission: cont IV steroids, Bipap and telemetry Subjective: feeling less SOB today Objective: Vital Signs Temp Pulse Resp BP Pulse Ox 36.2 C 83 25 H 135/63 H 94 04/25/16 20:00 04/26/16 11:13 04/26/16 11:13 04/26/16 10:00 04/26/16 11:13 Laboratory Results 04/26/16 06:10 04/26/16 06:10 04/25/16 04/26/16 04/27/16 05:59 05:59 05:59 Intake Total 103.1 1030 Output Total 100 2300 Balance 3.1 -1270 PT 13.8 SEC (12.0-15.0) 04/24/16 16:30 INR 1.07 (0.83-1.16) 04/24/16 16:30 - Physical Exam Constitutional: chronically ill appearing, cachectic Eyes: PERRL Ears, Nose, Mouth, Throat: moist mucous membranes Cardiovascular: tachycardia Respiratory: reduced air movement Gastrointestinal: normoactive bowel sounds, soft, non-tender abdomen Genitourinary: no bladder fullness Skin: warm Musculoskeletal: full muscle strength Neurologic: AAOx3 Psychiatric: anxious ICD10 Worksheet Patient Problems: Problems Problem Status Diagnosed Acute bronchitis Acute Chronic obstructive pulmonary disease with acute exacerbation Acute Severe sepsis Acute
--- NOTE | 2016-04-26 14:07 | IR ---
Imaging Guided Peripherally Inserted Central Catheter History: Central line access for pneumonia. Prophylactic Antibiotic: Cefazolin was not ordered and administered for antimicrobial prophylaxis be cause it was not medically necessary for this procedure. VTE Prophylaxis: There is not an order for VTE prophylaxis to be given within 24 hours after procedu re end time because it was not medically necessary for this procedure. Crosscutting Measure: Patient's current list of medications including all known prescriptions, over- the-counters, herbals, and vitamin/mineral/dietary supplements are reviewed. Medications' name, dosa ge, frequency, and route of administration are confirmed. Patient is a non-smoker. Technique: This procedure is performed at patient's bedside. No fluoroscopy was utilized. Following i nformed consent, the right arm was prepped and draped in sterile fashion. 1% Xylocaine was used for l ocal anesthetic. All elements of maximal sterile barrier technique including cap, mask, sterile marcos n, sterile gloves, large sterile sheet, hand hygiene, and 2% chlorhexidine for cutaneous antisepsis, followed. Ultrasound evaluation of potential access site was performed. After successfully identifying a patent vessel, ultrasound guidance was used to puncture the vein. A permanent recording was created for the patient's record. Ultrasound transducer was placed in sterile sleeve and used for real-time imaging guidance over steri le gel to enter the basilic vein. 0.018 measuring wire was passed centrally. A skin souleymane with scalpel blade was followed by removing the access needle. A 5 Romanian peel-away sheath was followed by a 5 F rench double-lumen central catheter, trimmed to 35 cm length. The tip of the catheter was positioned centrally and the guidewire removed. The hub of the catheter was fixed to the skin using a sterile S tatLock adhesive device, and a sterile dressing was applied. The catheter was irrigated. Fluoroscopy: 0 min Dose: 0 mGy Exposures: 0 images Impression: 5 Romanian double lumen peripherally inserted central catheter. Chest x-ray to follow to e valuate tip placement.
--- NOTE | 2016-04-26 14:07 | CPEKG ---
Heart Rate: 112 RR Interval: 536 P-R Interval: 144 QRSD Interval: 140 QT Interval: 388 QTC Interval: 530 P [place]: 62 QRS [place]: -60 T Wave [place]: 115 EKG Severity - ABNORMAL ECG - EKG Impression: SINUS TACHYCARDIA EKG Impression: LEFT BUNDLE BRANCH BLOCK Electronically Signed By: Nawaf Whitehead 27-Apr-2016 10:00:33
--- NOTE | 2016-04-26 14:21 | DX ---
AP PORTABLE CHEST APRIL 26, 2016 INDICATION: Evaluate line placement. FINDINGS: Right-sided PICC terminates in the SVC. Lungs are clear. Heart and mediastinum are normal. Bones and soft tissues are unchanged. IMPRESSION: Good positioning of right-sided PICC.
[2016-04-27 04:32] LABS: % IMMATURE GRANULYOCYTES 0.5 % (0.0-1.1); ABSOLUTE IMMATURE GRANULOCYTES 0.06 10^3/uL (0.00-0.10); ADD DIFF? NO; ADD MORPH? NO; ADD SCAN? NO; ATYPICAL LYMPHOCYTE FLAG 0 (0-99); FRAGMENT RBC FLAG 0 (0-99); HEMATOCRIT 41.9 % (38.0-47.0); HEMOGLOBIN 14.4 g/dL (12.6-16.3); LEFT SHIFT FLG 10 (0-99); LIPEMIA HEMOLYSIS FLAG 90 (0-99); MEAN CELL HEMOGLOBIN 30.3 pg (27.9-34.1); MEAN CELL HEMOGLOBIN CONCENTR. 34.4 g/dL (32.4-36.7); MEAN PLATELET VOLUME 9.9 fL (8.7-11.7); PLATELET CLUMPS FLAG 10 (0-99); PLATELET COUNT 312 10^3/uL (150-400); RED BLOOD CELL COUNT 4.76 10^6/uL (4.18-5.33); RED CELL DISTRIBUTION WIDTH 13.8 % (11.5-15.2)
[2016-04-27 04:54] LABS: INR 1.04 (0.83-1.16); PROTIME(PATIENT) 13.5 SEC (12.0-15.0)
[2016-04-27 04:55] LABS: APTT 23.5 SEC (23.0-38.0)
[2016-04-27 05:02] LABS: ANION GAP 8 mEq/L (8-16); CALCIUM 8.9 mg/dL (8.5-10.4); CARBON DIOXIDE 27 mEq/l (22-31); CHLORIDE 105 mEq/L (97-110); CHOLESTEROL 157 mg/dL (140-220); CHOLESTEROL/HDL RATIO 2.15 RATIO (1.00-4.44); GLOMERULAR FILTRATION RATE 54; GLUCOSE 131 mg/dL (70-100); HIGH DENSITY LIPOPROTEIN 73 mg/dL (40-85); LDL/HDL RATIO 0.97 RATIO (1.00-3.22); LOW DENSITY LIPOPROTEIN 71 mg/dL (80-100); MAGNESIUM 2.2 mg/dL (1.6-2.3); NON-HIGH DENSITY LIPOPROTEIN 84 mg/dL (90-129); POTASSIUM 4.3 mEq/L (3.5-5.2); SODIUM 140 mEq/L (134-144); TRIGLYCERIDE 65 mg/dL (35-135); VERY LOW DENSITY LIPOPROTEINS 13 mg/dL (8-25)
[2016-04-27] MEDS: methylPREDNISolone SOD SUCC 125 MG/2 ML VIAL IVP SCH ×4 (05:41→20:12)
[2016-04-27] MEDS: IPRATROPIUM/ALBUTEROL 3 ML DEYVIAL IH SCH ×4 (05:48→21:55)
[2016-04-27] MEDS: ACETYLCYSTEINE 20% IH/PO 30 ML VIAL IH SCH ×4 (05:48→21:55)
[2016-04-27] MEDS ORDERED: NS 1,000 ML IV ONE (06:00)
[2016-04-27] MEDS ORDERED: NITROGLYCERIN 0.4 MG BTL SL PRN (06:00)
[2016-04-27] MEDS: ALPRAZolam 0.25 MG TAB PO SCH ×3 (08:13→20:12)
[2016-04-27] MEDS: CARVEDILOL 3.125 MG TAB PO SCH (08:13)
[2016-04-27] MEDS: ATORVASTATIN CALCIUM 40 MG TAB PO SCH (08:14)
[2016-04-27] MEDS: ASPIRIN 325 MG TAB PO SCH ×2 (08:14→13:06)
[2016-04-27] MEDS: AZITHROMYCIN IV 500 MG in D5W 250 ML IV SCH ×2 (08:14→12:40)
--- NOTE | 2016-04-27 08:21 | CPEKG ---
Heart Rate: 127 RR Interval: 472 P-R Interval: 93 QRSD Interval: 146 QT Interval: 348 QTC Interval: 507 P [place]: 0 QRS [place]: -64 T Wave [place]: 146 EKG Severity - ABNORMAL ECG - EKG Impression: SINUS TACHYCARDIA EKG Impression: LEFT BUNDLE BRANCH BLOCK Electronically Signed By: Nawaf Whitehead 27-Apr-2016 10:00:29
--- NOTE | 2016-04-27 08:26 | HOSPPROG ---
Hospitalist Progress Note Assessment/Plan: #Acute hypoxemic resp failure: 05/07 #COPD exacerbation/emphysema -CT showed mucus plugging, no PE -BNP elevated, TTE pending -cont Azithro, and Duonebs; IV steroids today -PRN BiPap #CAD -cath showed non-stentable LAD disease -Appreciate Dr. Carter's evaluation #Compensated cardiomyopathy/systolic HF -not volume overloaded -appreciate Dr. Falcon's consultation -statin, ASA, Coreg started #Sinus tachycardia -stable off dilt drip -cont telemetry #Tobacco abuse -counseled on cessation #Benign HTN -Losartan, Coreg #Anxiety: xanax #Diet: regular #DVT ppx: Lovenox #Disp: warrant ICU admission: cont IV steroids, Bipap and telemetry Subjective: s/p cath. No pain Objective: Vital Signs Temp Pulse Resp BP Pulse Ox 37.6 C 114 H 19 139/70 H 94 04/27/16 07:47 04/27/16 08:13 04/27/16 07:47 04/27/16 08:13 04/27/16 07:47 Laboratory Results 04/27/16 04:20 04/27/16 04:20 04/26/16 04/27/16 04/28/16 05:59 05:59 05:59 Intake Total 1030 943 Output Total 2300 625 100 Balance -1270 318 -100 PT 13.5 SEC (12.0-15.0) 04/27/16 04:20 INR 1.04 (0.83-1.16) 04/27/16 04:20 - Physical Exam Constitutional: chronically ill appearing Eyes: PERRL Ears, Nose, Mouth, Throat: moist mucous membranes Cardiovascular: regular rate and rhythym Respiratory: no respiratory distress, expiratory wheeze Gastrointestinal: normoactive bowel sounds, soft, non-tender abdomen Skin: warm Musculoskeletal: full muscle strength, other (cath site without hematoma, good femoral pulse) Neurologic: CN II-XII Intact Psychiatric: interacting appropriately ICD10 Worksheet Patient Problems: Problems Problem Status Diagnosed Acute bronchitis Acute Chronic obstructive pulmonary disease with acute exacerbation Acute Severe sepsis Acute
[2016-04-27] MEDS ORDERED: BIVALIRUDIN 250 MG/5 ML VIAL IV ONE (08:58)
[2016-04-27] MEDS ORDERED: IOPAMIDOL (ISOVUE-370) 150 ML BTL IV ONE (08:58)
[2016-04-27] MEDS ORDERED: NITROGLYCERIN 1,500 MCG/15 ML VIAL MISC ONE (08:58)
[2016-04-27] MEDS ORDERED: diphenhydrAMINE 25 MG CAP PO ONE (09:00)
[2016-04-27] MEDS ORDERED: DIAZEPAM 5 MG TAB PO ONE (09:00)
--- NOTE | 2016-04-27 09:35 | PDDXCAT ---
Diagnostic Cath Note - . Date: 04/27/16 Sales Service Coordinator: Terrie High-risk criteria on non-invasive testing: severe resting left ventricular dysfunction (LVEF<35%) - Procedure Access: right groin Procedure: left heart catheterization, coronary angiography, left ventriculogram , right heart catheterization - Materials Left Heart Cath size: 6F Left Heart Cath materials: standard multipack (JL4, JR4, pigtail) Right Heart Cath size: 7F Right Heart Cath materials: PWP catheter - Findings-Left Heart Catheterization LM: plaque without flow limiting stenosis LAD: 80% ostial LAD and 80% ostial of both diagonals LCX: 75% prox OM RCA: dominant. No flow limiting disease EDP: 17 LVEF: 40% Wall motion: global hypokinesis - Findings-Right Heart Catheterization RA: 5 RV: 29/3 PA: 25/15 mean 20 PAOP: 11 AO: 134/70 CO: 3.8 (5L nasal cannula O2) CI: 2.64 Complications: none Estimated blood loss: <50ml Closure method: Angioseal Assessment: 2 vessel disease with CMP Plan: Surgical consultation with Dr. Carter given patient's trifurcation disease of the LAD system and low EF Patient Problems: Problems Problem Status Diagnosed Acute bronchitis Acute Chronic obstructive pulmonary disease with acute exacerbation Acute Severe sepsis Acute
[2016-04-27] MEDS ORDERED: ATROPINE SULFATE 1 MG/10 ML SYR IVP PRN (09:40)
[2016-04-27] MEDS: NICOTINE 21 MG/24 HR PATCH TD SCH (11:57)
[2016-04-27 12:16] LABS: BASE EXCESS -0.1 mEq/L (-2.5-2.5); BICARBONATE 23 mEq/L (22-26); MEASURED OXYGEN SATURATION 93 % (92-95); PCO2 33 mmHg (34-38); PO2 67 mmHg (65-75); TCO2 24 mEq/L (23-27)
--- NOTE | 2016-04-27 12:22 | PDINTPN ---
Generator Operator Straight Bevel Gear Progress Note Assessment/Plan: Assessment/Plan: * Severe Emphysema/exac-improved -continue steroids/nebs -ABG and spirometry pending * Pna-cont abs -check CXR am * Resp failure-improved * CMP- * CAD-cath reveals LAD/non stentable disease -Dr. Carter to see * Anxiety-better on Xanax * Malnutrition Subjective: Breathing easier. Objective: Vital Signs Temp Pulse Resp BP Pulse Ox 37.6 C 114 H 19 139/70 H 94 04/27/16 07:47 04/27/16 08:13 04/27/16 07:47 04/27/16 08:13 04/27/16 07:47 Laboratory Results 04/27/16 04:20 04/27/16 04:20 04/26/16 04/27/16 04/28/16 05:59 05:59 05:59 Intake Total 1030 943 Output Total 2300 625 100 Balance -1270 318 -100 PT 13.5 SEC (12.0-15.0) 04/27/16 04:20 INR 1.04 (0.83-1.16) 04/27/16 04:20 Physical Exam - Physical Exam General Appearance: alert, no apparent distress EENT: PERRL/EOMI, normal ENT inspection, pharynx normal Neck: non-tender, full range of motion, supple, normal inspection Respiratory: prolonged expiration, No respiratory distress, No stridor, No wheezing Cardiac/Chest: normal peripheral pulses, regular rate, rhythm, systolic murmur Peripheral Pulses: 2+: carotid (R), carotid (L), femoral (R), femoral (L), dorsalis-pedis (R), dorsalis-pedis (L) Abdomen: normal bowel sounds, non-tender, soft Pelvic Exam: deferred Rectal: deferred Skin: normal color, warm/dry Extremities: normal range of motion, non-tender, normal inspection, normal capillary refill ICD10 Worksheet Patient Problems: Problems Problem Status Diagnosed Acute bronchitis Acute Chronic obstructive pulmonary disease with acute exacerbation Acute Severe sepsis Acute
[2016-04-27] MEDS: ENOXAPARIN 40 MG/0.4 ML SYR SC SCH (13:06)
[2016-04-27] MEDS: CARVEDILOL 6.25 MG TAB PO SCH ×2 (13:06→20:11)
[2016-04-27] MEDS: guaiFENesin 600 MG TAB.ER PO SCH ×2 (13:06→20:12)
[2016-04-27] MEDS: FAMOTIDINE 20 MG TAB PO SCH ×2 (13:06→20:12)
[2016-04-27] MEDS: LOSARTAN POTASSIUM 50 MG TAB PO SCH (13:08)
[2016-04-27] MEDS ORDERED: CARVEDILOL 6.25 MG TAB PO SCH (18:00)
[2016-04-28] MEDS: methylPREDNISolone SOD SUCC 125 MG/2 ML VIAL IVP SCH ×3 (00:28→12:38)
[2016-04-28] MEDS: IPRATROPIUM/ALBUTEROL 3 ML DEYVIAL IH SCH ×4 (05:39→20:34)
[2016-04-28] MEDS: ACETYLCYSTEINE 20% IH/PO 30 ML VIAL IH SCH ×4 (05:39→20:34)
[2016-04-28 07:30] LABS: ANION GAP 8 mEq/L (8-16); CARBON DIOXIDE 26 mEq/l (22-31); CHLORIDE 106 mEq/L (97-110); CREATININE 0.9 mg/dL (0.6-1.0); GLOMERULAR FILTRATION RATE > 60; GLUCOSE 127 mg/dL (70-100); POTASSIUM 4.1 mEq/L (3.5-5.2); SODIUM 140 mEq/L (134-144)
[2016-04-28] MEDS: LOSARTAN POTASSIUM 50 MG TAB PO SCH (08:39)
[2016-04-28] MEDS: ASPIRIN 325 MG TAB PO SCH (08:40)
[2016-04-28] MEDS: NICOTINE 21 MG/24 HR PATCH TD SCH (08:41)
[2016-04-28] MEDS: ALPRAZolam 0.25 MG TAB PO SCH ×3 (08:41→21:01)
[2016-04-28] MEDS: FAMOTIDINE 20 MG TAB PO SCH ×2 (08:41→21:01)
[2016-04-28] MEDS: ENOXAPARIN 40 MG/0.4 ML SYR SC SCH (08:41)
[2016-04-28] MEDS: CARVEDILOL 6.25 MG TAB PO SCH ×2 (08:41→17:34)
[2016-04-28] MEDS: guaiFENesin 600 MG TAB.ER PO SCH ×2 (08:41→21:00)
[2016-04-28] MEDS: ATORVASTATIN CALCIUM 40 MG TAB PO SCH (08:41)
[2016-04-28] MEDS: AZITHROMYCIN IV 500 MG in D5W 250 ML IV SCH (08:42)
--- NOTE | 2016-04-28 11:37 | PDCARPN ---
Cardiology Progress Note Assessment/Plan: Assessment/plan: 76 yo F with COPD admitted with COPD exacerbation, pneumonia. Found to have borderline elevated troponin and newly dx CMP (LVEF 25%) 1. COPD/pna: respiratory status improved with abx, nebs, steroids. 2. CMP: not in overt CHF. REceived one dose of IV lasix. Started coreg and then uptitrated. (tolerating from resp standpoint). Continue ARB. Right heart cath with normal filling pressures and normal PA pressures. Significant left sided CAD (trifurcation disease of ostial LAD and both diags and OM disease). Would not be ideal anatomy for PCI. Dr. Carter will see patient regarding possible CABG. 3. Borderline trop: CAD as above . No angina. Statin, ASA, BB. 4. HTN: well controlled 5. Tobacco abuse: nicotine patch. Encouraged cessation 6. Carotid dz: seen on CT. ASA, statin, BP mx. 04/28/16 11:37 Subjective: Divine feels better. No angina. Breathing improved. Minimal right groin tenderness post cath Reviewed/Discussed With: other (Dr. Carter) Objective: Vital Signs (8 Hrs) Temp Pulse Resp BP Pulse Ox 04/28/16 11:15 80 18 91 L 04/28/16 08:10 120 H 04/28/16 08:00 36.9 C 112 H 22 H 130/53 H 89 L 04/28/16 05:39 99 19 95 04/28/16 04:00 36.8 C 70 20 114/50 L 95 Intake/Output (24 Hrs) 04/27/16 04/28/16 04/29/16 05:59 05:59 05:59 Intake Total 943 700 Output Total 625 1200 Balance 318 -500 Intake: Oral (ml) 600 400 IV Intake (ml) 343 IV Infused (ml) 300 Azithromycin IV 500 mg In 250 D5w 250 ml @ 255 mls/hr IV DAILY SALONI Rx#: [id number] cefTRIAXone 1 GM/DEXTROSE 50 50 ml @ 100 mls/hr IV DAILY SALONI Rx#:[id number] Output: Urine (ml) 625 1200 Bedside Commode 625 1200 Other: Number of Voids Bedside Commode 1 NAD JVP <10 RRR no m/r/g Lungs; occ rhonchi right femoral region: no bruit, hematoma, or ecchymoses. Minimal TTP No edema Result Diagrams: 04/27/16 04:20 04/28/16 06:05 Cardiac Labs: Cardiac Lab Results (72 Hrs) 04/25/16 12:10 Troponin I 0.059 H Telemetry: NSR/sinus tachycardia ICD10 Worksheet Patient Problems: Problems Problem Status Diagnosed Acute bronchitis Acute Chronic obstructive pulmonary disease with acute exacerbation Acute Severe sepsis Acute
--- NOTE | 2016-04-28 12:50 | PDINTPN ---
Grant Coordinator Progress Note Assessment/Plan: Assessment/plan: * COPD with acute exacerbation- improving daily on scheduled duoneb, O2 and solumedrol 125 q6 hours. Decrease steroids to 60 mg prednisone daily and start Spiriva with albuterol nebs. * PNA- currently treated with CTX/zithro and improving. Continue same for now, but will treat for 7 day course. * Hypoxia- 2/2 baove- not on O2 at home so will wean as tolerated. Not a barrier to dc home when ready. * CAD- noted on cath. D/x with Dr. Carter and will plan CABG after recovery from this hospitalization 04/28/16 12:44 Objective: Vital Signs Temp Pulse Resp BP Pulse Ox 36.8 C 87 17 113/56 L 90 L 04/28/16 12:00 04/28/16 12:00 04/28/16 12:00 04/28/16 12:00 04/28/16 12:00 Laboratory Results 04/27/16 04:20 04/28/16 06:05 04/27/16 04/28/16 04/29/16 05:59 05:59 05:59 Intake Total 943 700 Output Total 625 1200 300 Balance 318 -500 -300 PT 13.5 SEC (12.0-15.0) 04/27/16 04:20 INR 1.04 (0.83-1.16) 04/27/16 04:20 Physical Exam - Physical Exam General Appearance: alert, no apparent distress EENT: PERRL/EOMI, pharynx normal Neck: non-tender, supple Respiratory: lungs clear, normal breath sounds, No rales, No rhonchi, No wheezing, No prolonged expiration Cardiac/Chest: normal peripheral pulses, regular rate, rhythm, No JVD, No systolic murmur Abdomen: normal bowel sounds, non-tender, soft Skin: normal color, warm/dry Lymphatic: no adenopathy Extremities: normal range of motion, non-tender, No pedal edema Neuro/Psych: alert, normal mood/affect, oriented x 3, No abnormal 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
--- NOTE | 2016-04-28 13:51 | HOSPPROG ---
Hospitalist Progress Note Assessment/Plan: #Acute hypoxemic resp failure: 05/07 #COPD exacerbation/emphysema -CT showed mucus plugging, no PE -BNP elevated, TTE pending -cont Azithro, and Duonebs; change to pred today -PRN BiPap #CAD -cath showed non-stentable LAD disease -Appreciate Dr. Carter's evaluation. Pt to FU in couple of weeks when resp illness improved #Compensated cardiomyopathy/systolic HF -not volume overloaded -appreciate Dr. Falcon's consultation -statin, ASA, Coreg started #Sinus tachycardia -stable off dilt drip -cont telemetry #Tobacco abuse -counseled on cessation #Benign HTN -Losartan, Coreg #Anxiety: xanax #Diet: regular #DVT ppx: Lovenox #Disp: warrant ICU admission: Bipap and telemetry Subjective: worried about the surgery. Breathing improved Objective: Vital Signs Temp Pulse Resp BP Pulse Ox 36.8 C 87 17 113/56 L 90 L 04/28/16 12:00 04/28/16 12:00 04/28/16 12:00 04/28/16 12:00 04/28/16 12:00 Laboratory Results 04/27/16 04:20 04/28/16 06:05 04/27/16 04/28/16 04/29/16 05:59 05:59 05:59 Intake Total 943 700 Output Total 625 1200 300 Balance 318 -500 -300 PT 13.5 SEC (12.0-15.0) 04/27/16 04:20 INR 1.04 (0.83-1.16) 04/27/16 04:20 - Physical Exam Constitutional: chronically ill appearing, cachectic Eyes: PERRL Ears, Nose, Mouth, Throat: moist mucous membranes, hearing normal Cardiovascular: regular rate and rhythym, no murmur, rub, or gallop, edema (no LE edema) Respiratory: no respiratory distress, reduced air movement Gastrointestinal: normoactive bowel sounds, soft, non-tender abdomen Genitourinary: no bladder fullness Skin: warm Musculoskeletal: full muscle strength Neurologic: AAOx3 Psychiatric: interacting appropriately, anxious ICD10 Worksheet Patient Problems: Problems Problem Status Diagnosed Acute bronchitis Acute Chronic obstructive pulmonary disease with acute exacerbation Acute Severe sepsis Acute
--- NOTE | 2016-04-29 01:06 | GCON ---
[f rep st] CONSULTATION DATE OF CONSULTATION: 04/28/2016 The patient is seen at the request of Dr. Falcon with the patient's permission. IMPRESSION: 1. Non-Q-wave infarction with severe 2-vessel disease and moderate to severe left ventricular dysfun ction. 2. Chronic obstructive pulmonary disease with current admission for acute bronchitis/pneumonia, reso lving. 3. Hypertension. 4. Chronic ongoing cigarette abuse. RECOMMENDATIONS: This patient should complete her pulmonary therapy and we will follow her as an out patient and schedule her in several weeks for coronary bypass grafting. Risks and complications were reviewed at length with the patient and her son. Alternatives including stenting which she was felt to be a less than ideal candidate according to Dr. Hernandez due to her trifurcating lesion and severe 2-vessel disease. Risks and complications were reviewed at length. We will bring her back in the of fice and schedule her accordingly. CHIEF COMPLAINT: This is a pleasant 76-year-old female with a lifelong history of 1 pack of cigarett e abuse per day for 60+ years. She did have worsening shortness of breath and coughing to the point she became severely dyspneic and presented to the emergency room, was found to have probably likely b ronchitis with underlying pneumonia. Her troponin was noted to be mildly elevated. She underwent di agnostic left heart catheterization as well as right heart catheterization which showed normal right- sided pressures with severe 2-vessel disease with an ejection fraction of 30%. PAST MEDICAL HISTORY: As stated. SURGERIES: Not documented. MEDICATIONS: On admission, losartan, Lexapro. Current medications are albuterol, DuoNeb, Xanax, aspirin, Lipitor, carvedilol, Rocephin, Lovenox, Pe pcid, Mucinex, Cozaar, morphine, NicoDerm patch, Zofran, prednisone. REVIEW OF SYSTEMS: Except for current pulmonary complaints which were markedly improved, she does resendiz ve chronic fibromyalgia with intermittent discomfort. SOCIAL HISTORY: She does take care of a disabled daughter and is . PHYSICAL EXAMINATION: GENERAL: A slender, elderly female who appears younger than stated age. DYLAN L SIGNS: 113/56, pulse 87, respirations 17, and O2 saturation was 90% on 3 L. HEENT: Normocephalic . PERRLA. EOMI. NECK: Without bruit, adenopathy, or thyromegaly. HEART: Rate is regular without murmur, S3, or S4. LUNGS: Scattered rhonchi. Chest x-ray is unremarkable. ABDOMEN: Soft, nonten maría. Bowel sounds are active. EXTREMITIES: She has no peripheral edema. Femoral pulses are 2+ and symmetrical. Please see cath report for details. Creatinine was 0.9. Hematocrit was 41. /[id number]/MODL
[2016-04-29 04:21] LABS: ANION GAP 7 mEq/L (8-16); CALCIUM 8.5 mg/dL (8.5-10.4); CARBON DIOXIDE 29 mEq/l (22-31); CHLORIDE 106 mEq/L (97-110); CREATININE 0.9 mg/dL (0.6-1.0); GLOMERULAR FILTRATION RATE > 60; GLUCOSE 102 mg/dL (70-100); POTASSIUM 4.1 mEq/L (3.5-5.2); SODIUM 142 mEq/L (134-144)
[2016-04-29] MEDS: ACETYLCYSTEINE 20% IH/PO 30 ML VIAL IH SCH ×3 (05:32→16:40)
[2016-04-29] MEDS: IPRATROPIUM/ALBUTEROL 3 ML DEYVIAL IH SCH (05:32)
[2016-04-29] MEDS: CARVEDILOL 6.25 MG TAB PO SCH ×2 (08:34→17:39)
[2016-04-29] MEDS: ALPRAZolam 0.25 MG TAB PO SCH ×3 (08:35→21:13)
[2016-04-29] MEDS: FAMOTIDINE 20 MG TAB PO SCH ×2 (08:35→21:12)
[2016-04-29] MEDS: ATORVASTATIN CALCIUM 40 MG TAB PO SCH (08:36)
[2016-04-29] MEDS: LOSARTAN POTASSIUM 50 MG TAB PO SCH (08:36)
[2016-04-29] MEDS: predniSONE 20 MG TAB PO SCH (08:38)
[2016-04-29] MEDS: guaiFENesin 600 MG TAB.ER PO SCH ×2 (08:38→21:12)
[2016-04-29] MEDS: NICOTINE 21 MG/24 HR PATCH TD SCH (08:39)
[2016-04-29] MEDS: ENOXAPARIN 40 MG/0.4 ML SYR SC SCH (08:39)
[2016-04-29] MEDS: ASPIRIN 325 MG TAB PO SCH (08:45)
[2016-04-29] MEDS: TIOTROPIUM INHALER 18 MCG/DOSE 5 DOSE/MDI IH SCH (08:56)
[2016-04-29] MEDS: AZITHROMYCIN IV 500 MG in D5W 250 ML IV SCH (09:45)
--- NOTE | 2016-04-29 11:21 | PDCARPN ---
Cardiology Progress Note Assessment/Plan: Assessment/plan: 76 yo F with COPD admitted with COPD exacerbation, pneumonia. Found to have borderline elevated troponin and newly dx CMP (LVEF 25%) 1. COPD/pna: respiratory status improved with abx, nebs, steroids. 2. CMP: not in overt CHF. Received one dose of IV lasix. Started coreg ( tolerating from resp standpoint). Continue ARB. Right heart cath with normal filling pressures and normal PA pressures. Significant left sided CAD ( trifurcation disease of ostial LAD and both diags and OM disease). Would not be ideal anatomy for PCI. Dr. Carter plans for CABG. 3. Borderline trop: CAD as above . No angina. Statin, ASA, BB. 4. HTN: well controlled 5. Tobacco abuse: nicotine patch. Encouraged cessation 6. Carotid dz: seen on CT. ASA, statin, BP mx. Will sign off, please call with questions. Follow up with Dr. Carter to arrange details of surgery. 04/29/16 11:20 Subjective: Divine's SOB much improved. No CP Objective: Vital Signs (8 Hrs) Temp Pulse Resp BP Pulse Ox 04/29/16 11:11 36.5 C 102 H 20 105/56 L 94 04/29/16 08:34 115 H 142/77 H 04/29/16 07:54 36.7 C 106 H 19 135/68 H 96 04/29/16 05:32 80 18 98 04/29/16 04:00 76 16 127/56 H 94 Intake/Output (24 Hrs) 04/28/16 04/29/16 04/30/16 05:59 05:59 05:59 Intake Total 700 700 Output Total 1200 800 200 Balance -500 -100 -200 Intake: Oral (ml) 400 350 IV Intake (ml) 350 IV Infused (ml) 300 Azithromycin IV 500 mg In 250 D5w 250 ml @ 255 mls/hr IV DAILY SALONI Rx#: [id number] cefTRIAXone 1 GM/DEXTROSE 50 50 ml @ 100 mls/hr IV DAILY SALONI Rx#:[id number] Output: Urine (ml) 1200 800 200 Bedside Commode 1200 800 200 Other: Number of Voids Bedside Commode 1 1 Number of Stools Bedside Commode 1 NAD JVP <10 RRR no m/r/g Overall improved air movement. No wheezes, rhonchi, or rales No edema No ecchymoses on back or right flank Result Diagrams: 04/27/16 04:20 04/29/16 04:00 Telemetry: NSR, low grade sinus tachycardia ICD10 Worksheet Patient Problems: Problems Problem Status Diagnosed Acute bronchitis Acute Chronic obstructive pulmonary disease with acute exacerbation Acute Severe sepsis Acute
[2016-04-29] MEDS: ALBUTEROL 3 ML DEYVIAL IH SCH ×2 (11:27→16:39)
--- NOTE | 2016-04-29 12:19 | PDINTPN ---
Ch[employer]ur [employer] Progress Note Assessment/Plan: Assessment/plan: * COPD with acute exacerbation- improving daily on scheduled duoneb, O2 and solumedrol 125 q6 hours. Decrease steroids to 60 mg prednisone daily and start Spiriva with albuterol nebs. DC mucomyst today * PNA- currently treated with CTX/zithro and improving. Continue same for now, but will treat for 7 day course. * Hypoxia- 2/2 above- not on O2 at home so will wean as tolerated. Not a barrier to dc home when ready. * CAD- noted on cath. D/x with Dr. Carter and will plan CABG after recovery from this hospitalization 04/28/16 12:44 04/29/16 12:17 Objective: Vital Signs Temp Pulse Resp BP Pulse Ox 36.5 C 102 H 20 105/56 L 94 04/29/16 11:11 04/29/16 11:11 04/29/16 11:11 04/29/16 11:11 04/29/16 11:11 Laboratory Results 04/27/16 04:20 04/29/16 04:00 04/28/16 04/29/16 04/30/16 05:59 05:59 05:59 Intake Total 700 700 Output Total 1200 800 200 Balance -500 -100 -200 PT 13.5 SEC (12.0-15.0) 04/27/16 04:20 INR 1.04 (0.83-1.16) 04/27/16 04:20 Physical Exam - Physical Exam General Appearance: alert, no apparent distress EENT: PERRL/EOMI, No scleral icterus (L) Neck: non-tender, full range of motion, supple Respiratory: lungs clear, normal breath sounds, No respiratory distress, No wheezing Cardiac/Chest: normal peripheral pulses, regular rate, rhythm, tachycardia, No edema Abdomen: normal bowel sounds, non-tender, soft Skin: normal color, warm/dry, No rash Lymphatic: no adenopathy Extremities: non-tender, No pedal edema Neuro/Psych: alert, normal mood/affect, oriented x 3 ICD10 Worksheet Patient Problems: Problems Problem Status Diagnosed Acute bronchitis Acute Chronic obstructive pulmonary disease with acute exacerbation Acute Severe sepsis Acute
[2016-04-29] MEDS ORDERED: ACETYLCYSTEINE 20% IH/PO 30 ML VIAL IH PRN (17:00)
--- NOTE | 2016-04-29 17:36 | HOSPPROG ---
Hospitalist Progress Note Assessment/Plan: #Acute hypoxemic resp failure: 05/07 #COPD exacerbation/emphysema -CT showed mucus plugging, no PE -Day 08/09 abx. Prednisone #CAD -cath showed non-stentable LAD disease -Appreciate Dr. Carter's evaluation. Pt to FU in couple of weeks when resp illness improved for CABG #Compensated cardiomyopathy/systolic HF -not volume overloaded -appreciate Dr. Falcon's consultation -statin, ASA, Coreg started #Sinus tachycardia -decrease albuterol dose #Tobacco abuse -counseled on cessation #Benign HTN -Losartan, Coreg #Anxiety: xanax #Diet: regular #DVT ppx: Lovenox #Disp: warrant ICU admission: telemetry, PRN Bipap Subjective: no acute events Objective: Vital Signs Temp Pulse Resp BP Pulse Ox 36.7 C 106 H 20 117/54 L 94 04/29/16 15:36 04/29/16 15:36 04/29/16 15:36 04/29/16 15:36 04/29/16 15:36 Laboratory Results 04/27/16 04:20 04/29/16 04:00 04/28/16 04/29/16 04/30/16 05:59 05:59 05:59 Intake Total 700 700 Output Total 1200 800 200 Balance -500 -100 -200 PT 13.5 SEC (12.0-15.0) 04/27/16 04:20 INR 1.04 (0.83-1.16) 04/27/16 04:20 - Physical Exam Constitutional: cachectic Eyes: PERRL Ears, Nose, Mouth, Throat: moist mucous membranes, hearing normal Cardiovascular: regular rate and rhythym, no murmur, rub, or gallop Respiratory: reduced air movement, other (no wheezes) Gastrointestinal: normoactive bowel sounds Genitourinary: no bladder fullness Skin: warm Musculoskeletal: full muscle strength Neurologic: AAOx3 Psychiatric: interacting appropriately ICD10 Worksheet Patient Problems: Problems Problem Status Diagnosed Acute bronchitis Acute Chronic obstructive pulmonary disease with acute exacerbation Acute Severe sepsis Acute
[2016-04-30 05:18] LABS: ANION GAP 5 mEq/L (8-16); CALCIUM 8.4 mg/dL (8.5-10.4); CARBON DIOXIDE 28 mEq/l (22-31); CHLORIDE 108 mEq/L (97-110); CREATININE 0.8 mg/dL (0.6-1.0); GLOMERULAR FILTRATION RATE > 60; GLUCOSE 86 mg/dL (70-100); POTASSIUM 4.2 mEq/L (3.5-5.2); SODIUM 141 mEq/L (134-144)
[2016-04-30] MEDS: ALPRAZolam 0.25 MG TAB PO SCH ×3 (08:25→22:23)
[2016-04-30] MEDS: LOSARTAN POTASSIUM 50 MG TAB PO SCH (08:26)
[2016-04-30] MEDS: ASPIRIN 325 MG TAB PO SCH (08:28)
[2016-04-30] MEDS: predniSONE 20 MG TAB PO SCH (08:28)
[2016-04-30] MEDS: AZITHROMYCIN IV 500 MG in D5W 250 ML IV SCH (08:28)
[2016-04-30] MEDS: ATORVASTATIN CALCIUM 40 MG TAB PO SCH (08:28)
[2016-04-30] MEDS: guaiFENesin 600 MG TAB.ER PO SCH ×2 (08:28→22:23)
[2016-04-30] MEDS: CARVEDILOL 6.25 MG TAB PO SCH ×2 (08:28→18:04)
[2016-04-30] MEDS: FAMOTIDINE 20 MG TAB PO SCH ×2 (08:28→22:23)
[2016-04-30] MEDS: NICOTINE 21 MG/24 HR PATCH TD SCH (08:35)
[2016-04-30] MEDS: ENOXAPARIN 40 MG/0.4 ML SYR SC SCH (08:35)
[2016-04-30] MEDS: TIOTROPIUM INHALER 18 MCG/DOSE 5 DOSE/MDI IH SCH (10:40)
--- NOTE | 2016-04-30 17:23 | HOSPPROG ---
Hospitalist Progress Note Assessment/Plan: 76 yo F pw acute hypoxic respiratory failure 2/2 acute copd exacerbation # acute hypoxic respiratory failure: currently on 5L of O2 and at baseline on none, still desaturating to mid 80s when on RA. 2/2 next # chronic copd with acute exacerbation: likely 2/2 pna as next, improving slowly , scheduled nebs, steroids weaned to orals, acapella valve, IS # pna: continue current abx for now with ctx/azithro, CTA personally reviewed with mucous plugging and RUL pna, will repeat cxr in am # acute systolic heart failure: with EF of 25%, 2/2 ischemic CM as next, appears euvolemic # CAD: needs CABG, this will likely be done in the next several weeks # htn: continue current medications # tobacco use: counseled on cessation # dispo: IP status, will likely dc to snf in coming days # patient new to my care. old records reviewed and summarized as above. Subjective: no significant overnight events, patient feels some better but today she feels weaker than yesterday, no chest pain Objective: Vital Signs Temp Pulse Resp BP Pulse Ox 36.4 C 85 20 105/43 L 93 04/30/16 15:30 04/30/16 15:30 04/30/16 15:30 04/30/16 15:30 04/30/16 15:30 Laboratory Results 04/27/16 04:20 04/30/16 04:45 04/29/16 04/30/16 05/01/16 05:59 05:59 05:59 Intake Total 700 1406 Output Total 800 900 Balance -100 506 PT 13.5 SEC (12.0-15.0) 04/27/16 04:20 INR 1.04 (0.83-1.16) 04/27/16 04:20 chronically ill appearing anicteric op clear rrr systolic murmur dec bs throughout soft nt nd no cce warm dry well perfused oriented appropriate - Time Spent With Patient Time Spent with Patient: greater than 35 minutes Time Spent with Patient: Greater than 35 minutes spent on this patients care, greater than 50% of time spent counseling, educating, and coordinating care regarding the above mentioned plan. ICD10 Worksheet Patient Problems: Problems Problem Status Diagnosed Acute bronchitis Acute Chronic obstructive pulmonary disease with acute exacerbation Acute Severe sepsis Acute
[2016-05-01 07:34] VITALS: BP 121/96; PULSE 108; RESP 20; TEMP 98; O2SAT 90
[2016-05-01] MEDS: AZITHROMYCIN IV 500 MG in D5W 250 ML IV SCH (07:52)
[2016-05-01] MEDS: CARVEDILOL 6.25 MG TAB PO SCH (07:53)
[2016-05-01] MEDS: predniSONE 20 MG TAB PO SCH (07:53)
[2016-05-01] MEDS: ENOXAPARIN 40 MG/0.4 ML SYR SC SCH (07:53)
[2016-05-01] MEDS: ATORVASTATIN CALCIUM 40 MG TAB PO SCH (07:54)
[2016-05-01] MEDS: guaiFENesin 600 MG TAB.ER PO SCH (07:54)
[2016-05-01] MEDS: FAMOTIDINE 20 MG TAB PO SCH (07:54)
[2016-05-01] MEDS: LOSARTAN POTASSIUM 50 MG TAB PO SCH (07:54)
[2016-05-01] MEDS: ASPIRIN 325 MG TAB PO SCH (07:54)
[2016-05-01] MEDS: ALPRAZolam 0.25 MG TAB PO SCH (07:55)
[2016-05-01] MEDS: NICOTINE 21 MG/24 HR PATCH TD SCH (07:55)
--- NOTE | 2016-05-01 09:45 | PDDCSUM ---
Discharge Summary Discharge Summary: Dates of service 04/25-05/01/16 consultations: pulmonology, cardiology, CT surgery Procedures performed: PICC line, echo, chest CTA, coronary angiography/left heart cath/right heart cath/left ventriculogram Hospital course by problem: # acute hypoxic respiratory failure: 2/2 pna and chf, improved and was able to dc off of oxygen # chronic copd with acute exacerbation: exacerbation 2/2 pna, improved and dc home on inhalers including tiotroprium (new med), continued on steroids which she is on chronically # pna: tx'ed with ctx/azithro while in house and dc on levofloxacin with a plan to complete 10 day course # acute systolic heart failure: with EF of 25%, 2/2 ischemic CM as next, appears euvolemic at the time of dc # CAD: s/p cath with multivessel CAD, needs CABG, CT surg has evaluated and plans to operate in the next couple of weeks once she has recovered fully from above # htn: continue current medications # tobacco use: counseled on cessation Dispo: dc home, f/u with CT surgery and PCP > 35 minutes of time spent on dc more than half in coordination of care Meds: see EHR, new meds include levofloxacin, tiotropium
--- NOTE | 2016-05-01 11:57 | DX ---
Chest, PA and Lateral History: Possible pneumonia cough and dyspnea, history of asthma and COPD Comparison: Portable exam April 26, 2016, PA and lateral May 15, 2008 Findings: A right arm PICC line is stable since April 26, with tip in the superior vena cava. The h eart is newly enlarged since 2008. The pulmonary vascularity is not plethoric. There is some intersti tial disease at the lateral lung bases. There is no fissural thickening or azygous vein dilatation. T here is some atherosclerotic calcification of the ascending aorta. There is no focal infiltrate or co nsolidation. No pleural fluid. No pneumothorax or pneumomediastinum. The skeleton is unremarkable. Impression: No pneumonia. Cardiomegaly without failure.
[2016-05-01] MEDS: TIOTROPIUM INHALER 18 MCG/DOSE 5 DOSE/MDI IH SCH (12:24)
--- NOTE | 2016-05-01 14:11 | PDIAF ---
- Diagnosis Code Status: Full Code - Medication Management Discharge Medications: Medications to Continue on Transfer Albuterol [Ventolin Hfa Inhaler] 2 puffs IH QID 04/24/16 [Last Taken 04/24/16] Escitalopram Oxalate [Lexapro] 5 mg PO DAILY 04/24/16 [Last Taken 04/21/16] Losartan Potassium [Cozaar 50 mg (*)] 75 mg PO DAILY 04/24/16 [Last Taken ] predniSONE 40 mg PO DAILY 04/24/16 [Last Taken 04/24/16] ALPRAZolam [Xanax 0.25 MG (*)] 0.25 mg PO TID PRN #21 tab 05/01/16 [Last Taken Unknown] Acetaminophen [Tylenol 325mg (*)] 650 mg PO Q4HRS PRN #0 tab 05/01/16 [Last Taken Unknown] Aspirin [Aspirin 325 mg (*)] 325 mg PO DAILY #0 tab 05/01/16 [Last Taken Unknown ] Atorvastatin Calcium [Lipitor 40 mg (*)] 40 mg PO DAILY #30 tab 05/01/16 [Last Taken Unknown] Atropine Sulfate [Atropine Sulfate 1 MG/10 ML SYR] 1 mg IVP PRN PRN #0 syr 05/01 [Last Taken Unknown] Carvedilol [Coreg (*)] 6.25 mg PO BIDMEAL #60 tab 05/01/16 [Last Taken Unknown] Nicotine [Nicoderm Cq 21 mg (*)] 21 mg TD DAILY #14 patch 05/01/16 [Last Taken Unknown] Tiotropium Inhaler [Spiriva Handihaler] 18 mcg IH DAILY #1 mdi 05/01/16 [Last Taken Unknown] guaiFENesin [Mucinex 600 MG (*)] 1,200 mg PO BID #0 tab.er 05/01/16 [Last Taken Unknown] levOFLOXACIN [Levofloxacin] 750 mg PO DAILY #3 tablet 05/01/16 [Last Taken Unknown] Discharge Medications: Refer to the Discharge Home Medication list for PRN reason. - Orders Services needed: Home Care, Registered Nurse, Master Web Retailer, Physical Therapy Home Care Face to Face: I certify that this patient was under my care and that I had the required [id number] encounter meeting the encounter requirements on the discharge day. My findings support the fact that the patient is homebound as defined in CMS Chapter 7 Medicare Benefits Manual 30.1.1, The condition of the patient is such that there exists a normal inability to leave home and consequently, leaving home would require a considerable and taxing effort. Diet Recommendation: cardiac -low fat low salt - Follow Up Care Current Providers and Referrals: [place],. [Primary Care Provider] - As per Instructions Ronny Carter DO [Doctor of Osteopathy] - 05/19/16 1:00 pm (discussion Coronary Artery Bypass Grafting)
== END 2016-05-01 13:32 | disposition home health service (06) | DRG 286 ==
LOC: F2N 19:50 → OBSVTOIN 20:04 → F2W 04-30 05:45
PROVIDERS: ADMIT Internal Medicine; ATTEND Internal Medicine
PROC: 02HV33Z Insertion of Infusion Device into Superior Vena Cava, Percutaneous Approach (ICD-10-PCS; 2016-04-26)
PROC: B2151ZZ Fluoroscopy of Left Heart using Low Osmolar Contrast (ICD-10-PCS; principal; 2016-04-27)
PROC: 4A023N8 Measurement of Cardiac Sampling and Pressure, Bilateral, Percutaneous Approach (ICD-10-PCS; principal; 2016-04-27)
PROC: B2111ZZ Fluoroscopy of Multiple Coronary Arteries using Low Osmolar Contrast (ICD-10-PCS; principal; 2016-04-27)
DX: I50.21 Acute systolic (congestive) heart failure (principal); J18.9 Pneumonia, unspecified organism; J96.01 Acute respiratory failure with hypoxia; J44.1 Chronic obstructive pulmonary disease with (acute) exacerbation; I42.9 Cardiomyopathy, unspecified; I25.10 Atherosclerotic heart disease of native coronary artery without angina pectoris; I11.0 Hypertensive heart disease with heart failure; F17.210 Nicotine dependence, cigarettes, uncomplicated; Z88.0 Allergy status to penicillin; M79.7 Fibromyalgia
CPT/HCPCS: 96365; 97116-GP; 97162-GP; 97530-GP; C1751; C1760; J0456; J0583; J0696; J1644; J1650; J2250; J3010; Q9967